=== PATIENT | male | born 1955 | race Caucasian/White ===

== ENCOUNTER 2017-11-17 09:47 | Outpatient (CLI) | payer BC ==
[2017-11-17 10:25] LABS: Bilirubin Negative (Negative); Blood, Urine Negative (Negative); Clarity Clear (Clear); Glucose, Urine (Dipstick) Negative (Negative); Leukocyte Negative (Negative); Nitrite Negative (Negative); Protein, Urine (Dipstick) Negative (Neg-Trace); Specific Gravity, Urine 1.015 (1.005-1.030); Urobilinogen 0.2 mg/dL (0.2-1.0)
[2017-11-17 10:35] LABS: Bacteria/HPF None Seen HPF (None Seen); RBC/HPF 0-3 HPF (0-3); Squamous Epithelial None Seen HPF (0-3); WBC/HPF 0-3 HPF (0-3)
[2017-11-17 10:38] LABS: ALT (SGPT) 34 U/L (8-55); AST (SGOT) 26 U/L (5-34); Albumin 4.3 g/dL (3.4-4.8); Alkaline Phosphatase 84 U/L (40-150); Anion Gap 12 mmol/L (10-20); BUN (Urea Nitrogen) 14 mg/dL (8.4-25.7); Bilirubin, Total 0.8 mg/dL (0.2-1.2); Calc. Creatinine Clearance 0 mL/min (70-130); Calcium 9.4 mg/dL (7.8-10.44); Carbon Dioxide 28 mmol/L (23-31); Cardiac Risk 4.4 (Less than 4.5); Chloride 103 mmol/L (98-107); Cholesterol 146 mg/dl (< 200 Desired); Estimated GFR-MDRD 61; Globulin 3.1 g/dL (2.4-3.5); Glucose 101 mg/dL (80-115); HDL Cholesterol 33 mg/dL (>60 Neg Risk); LDL Cholesterol, Calculated 94 mg/dL; Potassium 4.1 mmol/L (3.5-5.1); Protein, Total 7.4 g/dL (5.8-8.1); Sodium 139 mmol/L (136-145); Triglycerides 94 mg/dL (Less than 150)
[2017-11-17 10:39] LABS: #Basophils 0.2 thou/uL (0.0-0.2); #Eosinphils 0.6 thou/uL (0.0-0.7); #Lymphocytes 1.3 thou/uL (1.20-3.40); #Monocytes 0.6 thou/uL (0.11-0.59); #Neutrophils 7.2 thou/uL (1.40-6.50); %Basophils 1.7 % (0.0-1.0); %Eosinophils 5.8 % (0.0-10.0); %Lymphocytes 13.1 % (21.0-51.0); %Monocytes 6.5 % (0.0-10.0); %Neutrophils 72.8 % (42.0-75.0); Hemoglobin 16.6 g/dL (14.0-18.0); Mean Corpuscular HGB CONC 35.1 g/dL (32.0-36.0); Mean Corpuscular Hemoglobin 31.7 pg (27.0-31.0); Mean Corpuscular Volume 90.4 fl (80.0-94.0); Mean Platelet Volume 7.7 fL (7.4-10.4); Platelet Count 305 thou/uL (130-400); RBC Distribution Width 11.6 % (11.5-14.5); Red Blood Cell (RBC) Count 5.23 mill/uL (4.70-6.10); White Blood Cell (WBC) Count 9.8 thou/uL (4.8-10.8)
[2017-11-17 10:55] LABS: PSA-Asymptomatic (SCREENING) 1.2 ng/mL (0-4.0); Thyroid Stimulating Hormone 2.701 uIU/mL (0.35-4.94)
--- NOTE | 2017-11-17 11:02 | RAD ---
FOUR VIEWS LEFT RIBS: Date: 11-17-17 Comparison: None. History: Fall, pain. FINDINGS: Blunting of the costophrenic angle on the left suggests a small left pleural effusion. The chest is n ot fully imaged on this examination. There is a calcification noted in the left upper quadrant measuring 6 mm which could signify a left r enal stone. No displaced left sided rib fracture is seen. IMPRESSION: No displaced left sided rib fracture. Blunting of the left costophrenic angle as above. Question left renal stone. POS: [facility]
== END 2017-11-17 09:48 | disposition home or self-care (01) ==
LOC: SCSRAD 09:47
PROVIDERS: ATTEND Family Medicine
DX: Z12.5 Encounter for screening for malignant neoplasm of prostate (principal); Z00.00 Encounter for general adult medical examination without abnormal findings; R07.81 Pleurodynia
CPT/HCPCS: 36415; 80053; 80061; 81001; 84443; 85025; G0103

== ENCOUNTER 2017-11-26 09:41 | Outpatient (CLI) | payer BC ==
--- NOTE | 2017-11-26 12:07 | ULT ---
RENAL SONOGRAM: 11/26/2017 HISTORY: Renal calculi. History of lithotripsy x3. FINDINGS: The right kidney measures 11.5 cm x 6.4 cm with the left kidney measuring 10.3 cm x 5.1 cm. There is an echogenic focus in the mid portion of the right kidney with suggestion of posterior shado wing, measuring 0.9 cm in maximal dimensions, likely related to a calculus. There are a few scattered echogenic foci seen within the superior pole and mid portion of the left ki dney. The largest echogenic focus is seen in the mid portion, left kidney measuring 1.4 cm, with an a dditional calculus at the junction mid portion, superior pole, measuring 1.2 cm, and an echogenic foc us in the superior pole measuring 1.1 cm. There is no evidence of hydronephrosis, renal mass, or perinephric fluid collection identified. The urinary bladder is incompletely distended but does demonstrate a normal sonographic appearance. IMPRESSION: Nonobstructing bilateral renal calculi. POS: [facility]
== END 2017-11-26 09:42 | disposition home or self-care (01) ==
LOC: SCSULT 09:41
PROVIDERS: ATTEND Family Medicine
DX: N20.0 Calculus of kidney (principal)
CPT/HCPCS: 76770

== ENCOUNTER 2017-12-04 08:30 | Outpatient (CLI) | payer BC ==
--- NOTE | 2017-12-04 09:00 | RAD ---
TWO VIEWS CHEST: Comparison: None. History: Fall two weeks ago hitting left side of the chest with left chest pain. FINDINGS: Two views of the chest shows normal sized cardiomediastinal silhouette. There appears to be a small l eft pleural effusion. No consolidation, mass, or pneumothorax are seen. The bones are unremarkable. IMPRESSION: Small left pleural effusion. POS: [facility]
== END 2017-12-04 08:31 | disposition home or self-care (01) ==
LOC: SCSRAD 08:30
PROVIDERS: ATTEND Family Medicine
DX: R07.81 Pleurodynia (principal); J90 Pleural effusion, not elsewhere classified
CPT/HCPCS: 71046

== ENCOUNTER 2018-01-14 06:04 | Day surgery (SDC) | payer BC ==
[2018-01-13 08:56] VITALS: BMI 28.5
[2018-01-14] MEDS ORDERED: Fentanyl 250 MCG/5 ML VIAL ONE (06:34)
[2018-01-14] MEDS ORDERED: Iothalamate Meglumine 60% 50 ML VIAL FS ONE (06:42)
[2018-01-14] MEDS ORDERED: Fentanyl 100 MCG/2 ML VIAL ONE (07:14)
[2018-01-14 07:23] LABS: Platelet Count 230 thou/uL (130-400)
--- NOTE | 2018-01-14 08:55 | RAD ---
SUPINE ABDOMEN: HISTORY: Preoperative evaluation. FINDINGS: There is a 7 mm calcification overlying the lower pole of the right kidney. There is an 8 mm calculu s overlying the upper pole of the left kidney. There are several other smaller calculi overlying the mid and lower pole of the left kidney. The mid and lower pole of the right kidney is obscured by ov erlying bowel content, and tiny calculi on the right could be obscured. The bowel gas pattern is unr emarkable. IMPRESSION: Evidence of bilateral renal calculi. POS: [facility]
--- NOTE | 2018-01-14 09:53 | OP ---
DATE OF PROCEDURE: 01/14/2018 PREOPERATIVE DIAGNOSIS: Left renal stone. POSTOPERATIVE DIAGNOSIS: Left renal stone. PROCEDURE PERFORMED: Left ESWL. SURGEON: Dr. Leno Sheldon ANESTHETIC: General. ESTIMATED BLOOD LOSS: Not recorded. FINDINGS: There is a 7-8 mm left upper pole renal calcification that was treated with 2500 shocks at level 4 with good fragmentation. A stent was not placed. OPERATIVE TECHNIQUE: After obtaining written and verbal consent from the patient and documenting nor mal preoperative blood work and being sure we could adequately see the stone on his preop KUB he was taken to the operating suite. He was placed in supine position on the treatment table. PlexiPulses were placed on his lower extremities and turned on. He was given a general anesthetic, oral intubati on. He was coupled to the lithotripter unit. The stone was placed in treatment focal point. Shockw ave therapy was commenced at a very low kV and a rate of 60. After a couple 100 shocks, a 5 minute p ause was given. We then increased the rate to level 4. He did have some slight problems with heart arrhythmia ungated. So we went ahead and gated him for the remaining of the procedure. He had no fu rther ectopy. We used fluoroscopy intermittently to document stone fragments as well as reposition. The stone did appear to fragment and spread out. At the end of the procedure at 2500 shocks, he was awakened, extubated, and taken by stretcher to the recovery room.
[2018-01-14] MEDS ORDERED: PROPOFOL 200 MG/20 ML VIAL ONE (14:24)
[2018-01-14] MEDS ORDERED: Ondansetron HCl/PF 4 MG/2 ML Vial ONE (14:24)
[2018-01-14] MEDS ORDERED: Lidocaine 1% PF 5 ML VIAL ONE (14:24)
== END 2018-01-14 11:05 | disposition home or self-care (01) ==
LOC: SDC 06:04
PROVIDERS: ATTEND Urology
PROC: 0TF4XZZ Fragmentation in Left Kidney Pelvis, External Approach (ICD-10-PCS; principal; 2018-01-14)
DX: N20.0 Calculus of kidney (principal); Z88.0 Allergy status to penicillin
CPT/HCPCS: 74018; 85576; J0131; J2001; J2405; J2704; J3010; Q9961

== ENCOUNTER 2018-03-13 07:30 | Outpatient (CLI) | payer BC ==
--- NOTE | 2018-03-13 11:54 | ULT ---
SONOGRMA ABDOMEN COMPLETE: HISTORY: Upper abdomen pain. FINDINGS: Gallbladder has a normal appearance. The common duct is 0.4 cm. The liver is diffusely echogenic wi thout focal mass or intrahepatic biliary dilatation. No free fluid. The spleen is 14.5 cm without f ocal abnormality evident. The kidneys and visualized portions of the abdominal aorta, IVC, and pancr eas are unremarkable. IMPRESSION: 1. No evidence of gallstones or biliary obstruction. 2. Hepatosteatosis. 3. Mild splenomegaly. Cause is not evident. POS: [facility]
--- NOTE | 2018-03-13 11:55 | ULT ---
URINARY BLADDER SONOGRAM: HISTORY: Bladder pain. FINDINGS: Urinary bladder has a normal appearance. Prevoid volume calculated at 81 cc. Postvoid images show n o residual fluid. IMPRESSION: Normal sonographic appearance of the urinary bladder. NO significant postvoid residual. POS: [facility]
== END 2018-03-13 07:31 | disposition home or self-care (01) ==
LOC: SCSULT 07:30
PROVIDERS: ATTEND Family Medicine
DX: N20.0 Calculus of kidney (principal); R10.84 Generalized abdominal pain; K76.0 Fatty (change of) liver, not elsewhere classified; R16.1 Splenomegaly, not elsewhere classified
CPT/HCPCS: 76700; 76856